=== PATIENT | male | born 1990 | race Caucasian/White ===

== ENCOUNTER 2018-01-25 20:52 | Emergency (ER) | payer MEDICAID ==
[~2018-01-25] VITALS: Ht 180.3 cm; Wt 116.0 kg
[~2018-01-25 20:52] MED LIST: SUCR1ORA2 PO
[2018-01-25 21:03] VITALS: BP 143/80
[2018-01-25] MEDS ORDERED: PENI-88 PO (22:09)
== END 2018-01-25 22:25 | disposition home or self-care (01) ==
LOC: ER 20:52
DX: J02.9 Acute pharyngitis, unspecified (principal)
CPT/HCPCS: 99283

== ENCOUNTER 2018-07-31 06:21 | Emergency (ER) | payer MEDICAID ==
[~2018-07-31] VITALS: Ht 180.3 cm; Wt 119.3 kg
[2018-07-31 06:32] VITALS: BP 123/72
[2018-07-31] MEDS ORDERED: acetaminophen 325mg tablet PO ONE (06:55)
[2018-07-31] MEDS ORDERED: ketorolac trometh inj. 60 MG/2 ML VIAL IM ONE (06:55)
[2018-07-31] MEDS ORDERED: CYCL-1 PO (06:59)
[2018-07-31] MEDS ORDERED: ACET-2615 PO (06:59)
[2018-07-31] MEDS ORDERED: IBUP-1985 PO (06:59)
== END 2018-07-31 07:14 | disposition home or self-care (01) ==
LOC: ER 06:22
DX: M25.511 Pain in right shoulder (principal); R20.0 Anesthesia of skin; Z79.899 Other long term (current) drug therapy; X50.0XXA Overexertion from strenuous movement or load, initial encounter; Y93.89 Activity, other specified; Y92.89 Other specified places as the place of occurrence of the external cause; Y99.0 Civilian activity done for income or pay
CPT/HCPCS: 20552; 96372; 99284; J1885; 99283